=== PATIENT | female | born 1975 | race Caucasian/White ===

== ENCOUNTER 2019-11-24 11:47 | Outpatient (CLI) | payer BC ==
[~2019-11-24] VITALS: Ht 165 cm; Wt 79.0 kg
[~2019-11-24 11:47] MED LIST: CEFU500T5 PO; CIPR500T4 PO; OXYC-12 PO
[2019-11-24] MEDS ORDERED: methylPREDNISolone 125 MG (Solu-MEDROL) VIAL IV NR (12:02)
[2019-11-24] MEDS ORDERED: LACTATED RINGERS 1,000 ML IV SCH (12:15)
[2019-11-24] MEDS ORDERED: ONDANSETRON 4 MG/2 ML (SDV) Z0FRAN IV PRN (12:15)
[2019-11-24] MEDS ORDERED: KETOROLAC 30 MG/ML VIAL IV ONE (12:15)
[2019-11-24] MEDS ORDERED: cefTRIAXone 1,000 MG/SWFI 10 ML IV PUSH IV ONE ×2 (12:15)
[2019-11-24 12:18] LABS: HEMOGLOBIN 11.7 G/DL (11.5-16.0); MEAN PLATELET VOLUME 9.4 FL (7.4-10.4); RED CELL DISTRIBUTION WIDTH 16.3 % (10.0-14.5); WHITE BLOOD COUNT 15.3 10^3/uL (4.3-11.0)
[2019-11-24 12:35] LABS: ALANINE AMINOTRANSFERASE 27 U/L (0-55); ALBUMIN 3.8 GM/DL (3.2-4.5); ALKALINE PHOSPHATASE 96 U/L (40-136); BILIRUBIN,TOTAL 0.3 MG/DL (0.1-1.0); BUN/CREATININE RATIO 9; CALCIUM 9.1 MG/DL (8.5-10.1); CARBON DIOXIDE 22 MMOL/L (21-32); CHLORIDE 105 MMOL/L (98-107); CREATININE SERUM 0.77 MG/DL (0.60-1.30); GFR ESTIMATED > 60; GLUCOSE 115 MG/DL (70-105); POTASSIUM 3.6 MMOL/L (3.6-5.0); SODIUM 141 MMOL/L (135-145); TOTAL PROTEIN 7.3 GM/DL (6.4-8.2)
[2019-11-24 13:30] VITALS: BP 111/78
== END 2019-11-24 13:30 | disposition home or self-care (01) ==
LOC: SDC 11:47
PROVIDERS: ATTEND Nurse Practitioner Family
DX: R94.39 Abnormal result of other cardiovascular function study (principal)
CPT/HCPCS: 36415; 80053; 85027; 86308; 96360; 96374; 96375

== ENCOUNTER 2019-11-25 10:29 | Outpatient (CLI) | payer BC ==
[2019-11-25 10:34] VITALS: BP 111/76
[2019-11-25] MEDS ORDERED: KETOROLAC 30 MG/ML VIAL IV NR (10:46)
[2019-11-25] MEDS ORDERED: cefTRIAXone 1,000 MG/SWFI 10 ML IV PUSH IV NR ×2 (10:46)
[2019-11-25] MEDS ORDERED: methylPREDNISolone 125 MG (Solu-MEDROL) VIAL IV NR (10:46)
[2019-11-25] MEDS ORDERED: ONDANSETRON 4 MG/2 ML (SDV) Z0FRAN IV NR (10:47)
[2019-11-25] MEDS ORDERED: LACTATED RINGERS 1,000 ML IV SCH (11:00)
[2019-11-25 11:26] LABS: HEMOGLOBIN 10.3 G/DL (11.5-16.0); MEAN PLATELET VOLUME 9.7 FL (7.4-10.4); RED CELL DISTRIBUTION WIDTH 16.2 % (10.0-14.5); WHITE BLOOD COUNT 16.6 10^3/uL (4.3-11.0)
[2019-11-25 12:48] LABS: ALANINE AMINOTRANSFERASE 20 U/L (0-55); ALBUMIN 3.4 GM/DL (3.2-4.5); ALKALINE PHOSPHATASE 70 U/L (40-136); BILIRUBIN,TOTAL 0.1 MG/DL (0.1-1.0); BUN/CREATININE RATIO 16; CARBON DIOXIDE 22 MMOL/L (21-32); CHLORIDE 108 MMOL/L (98-107); CREATININE SERUM 0.64 MG/DL (0.60-1.30); GFR ESTIMATED > 60; GLUCOSE 110 MG/DL (70-105); POTASSIUM 4.1 MMOL/L (3.6-5.0); SODIUM 141 MMOL/L (135-145); TOTAL PROTEIN 6.4 GM/DL (6.4-8.2)
== END 2019-11-25 12:30 | disposition home or self-care (01) ==
LOC: SDC 10:29
PROVIDERS: ATTEND Nurse Practitioner Family
DX: J03.90 Acute tonsillitis, unspecified (principal); D72.829 Elevated white blood cell count, unspecified; E86.0 Dehydration
CPT/HCPCS: 36415; 80053; 85027; 96360; 96374; 96375

== ENCOUNTER 2022-11-30 12:09 | Outpatient (CLI) | payer BC ==
[~2022-11-30] VITALS: Ht 167.6 cm; Wt 79.0 kg
[2022-11-30] MEDS ORDERED: LACTATED RINGERS 1,000 ML IV ONE ×2 (12:25→12:45)
[2022-11-30] MEDS ORDERED: cefTRIAXone 1 GM PRE-MIX 50 ML IV ONE (12:45)
[2022-11-30 14:00] VITALS: BP 118/73
== END 2022-11-30 14:00 ==
LOC: SDC 12:09
PROVIDERS: ATTEND Nurse Practitioner Family
DX: M16.11 Unilateral primary osteoarthritis, right hip (principal)
CPT/HCPCS: 96360